=== PATIENT | male | born 1960 ===

== ENCOUNTER 2016-08-10 09:19 | Emergency (ER) | payer MEDICARE, OTHER, MEDICAID ==
[~2016-08-10] VITALS: Ht 179.1 cm; Wt 143.2 kg
[~2016-08-10 09:19] MED LIST: BECL8.7A6 IH; CARV12.52 PO; DOFE0.25 PO; FISH1CAP15 PO; FLUT9.9S NASAL; GARL200T PO; GLUC-123 PO; INSU100I18 SUBQ; INSU100V7 SUBQ; LAN125 PO; LISI10TA PO; METF500T4 PO; MULT1CAP33 PO; NITR0.4T SL; SIMV20TA4 PO; SPIR25TA3 PO; TORS20TA PO; VITA400C64 PO; WARF7.5T4 PO
[2016-08-10 09:21] VITALS: PULSE 53; RESP 16; O2SAT 98
--- NOTE | 2016-08-10 09:34 | ED.REPORT ---
HPI-Abd Pain M 40 and Over Date of Service Aug 10, 2016 ED Provider: David Felix Patient is a 56 year old male on warfarin who presents to the ED complaining of N/V/D onset 0200 this morning. Associated symptoms include cramping abdominal pain that has since resolved and global weakness. His last episode of diarrhea was at 0900 this morning. He denies fever, chills, or any other symptoms. He is concerned that he won't be able to take his heart medications down because of his vomiting. No known sick contacts at home. Nursing Notes Stated Complaint: VOMITTING,DIARRHEA Chief Complaint: Male Abdominal Pain Nursing Notes Reviewed: Yes Allergies: Coded Allergies: NSAIDS (Non-Steroidal Anti-Inflamma (Verified Allergy, Unknown, Oral ulcers, 10/05/15) PER MD PT HAS TAKEN ASA FOR A LONG TIME WITHOUT ANY ISSUES. Not taking ASA presently Scheduled Beclomethasone Dipropionate (Qvar) 8.7 Gm Aer.w.adap 2 PUFFS IH DAILY Carvedilol (Carvedilol) 12.5 Mg Tablet 12.5 MG PO BID Digoxin (Lanoxin) 0.125 Mg Tablet 0.125 MG PO DAILY@12 Dofetilide (Tikosyn) 250 Mcg Capsule 250 MCG PO BID Fish Oil/Dha/Epa (Fish Oil 1,200 mg Fish Oil) 1 Each Capsule 1 EACH PO DAILY Fluticasone Propionate (Flonase Allergy Relief) 50 Mcg/Actuation [place].susp 2 SPRAY NASAL HS Garlic (Garlic) 200 Mg Tablet 200 MG PO DAILY Insulin Glargine (Lantus U100 Insulin Vial) 100 Unit/Ml Vial 100 UNIT SUBQ QPM Lisinopril (Lisinopril) 10 Mg Tablet 10 MG PO DAILY Metformin (Metformin) 500 Mg Tablet 500 MG PO BID Multivitamin (Multivitamins) 1 Each Capsule 1 EACH PO DAILY Simvastatin (Simvastatin) 20 Mg Tablet 20 MG PO HS Spironolactone (Spironolactone) 25 Mg Tablet 12.5 MG PO DAILY Torsemide (Demadex) 20 Mg Tablet 20 MG PO DAILY Vitamin E Mixed (Vitamin E) 400 Unit Capsule 400 UNIT PO DAILY Warfarin Sodium (Warfarin Sodium) 7.5 Mg Tablet 7.5 MG PO Mon,Tue,Thur,Fri,Sat Warfarin Sodium (Warfarin Sodium) 7.5 Mg Tablet 3.75 MG PO Wed,Sun Scheduled PRN Insulin Lispro (HumaLOG U100 Insulin Pen) 100 Unit/1 Ml Insuln.pen 0-25 UNIT SUBQ ACHS PRN PRN Hyperglycemia Blood Sugar Lispro Correction <151 0 units 151-175 1 unit 176-200 2 units 201-225 3 units 226-250 4 units 251-275 5 units 276-300 6 units 301-325 7 units 326-350 8 units 351-375 9 units 376-400 10 units >400 12 units Check blood sugars before meals and at bedtime. Use correction factor only before meals. Nitroglycerin SL (Nitrostat) 0.4 Mg Tab.subl 0.4 MG SL Q5MIN PRN PRN Chest Pain Ondansetron ODT (Zofran ODT) 4 Mg Tablet 4 MG PO Q4H PRN PRN For Nausea Miscellaneous Medications Gluc/Gabino-MSM#2/C/D3/Scott/Born (Oxjllupouw-Jtyaitooene-CQE Tab) 1 Each Tablet 1 EACH PO General Time Seen by MD: 09:33 Chief Complaint Other (Vomiting ) Hx Obtained From: Patient Arrived By: Walk-in Sudden in Onset?: Yes Onset Occurred: 5 - 8 hours ago Past Medical History Past Medical History Hypertension Diabetes mellitus type II Nonischemic dilated cardiomyopathy Chronic systolic congestive heart failure Atrial fibrillation Cardiac catheterization April 2013: Normal coronaries angiographically, severely reduced left ventricular systolic function with an estimated ejection fraction of 30%, left ventricular end-diastolic pressures 9 mmHg. COPD GERD Past Surgical History Vasectomy Right wrist repair Bowel resection Cardiac ablation Appendectomy Pacemaker placement Mitral valve clip Family History Grandfather: CAD, [place] Sister: HTN Brother: IGLESIA Smoking History Former Smoker Social History Alcohol Use: "Social" Drug Use: THC Other Social History: Good social support, Local resident Ambulatory Status Independent Review of Systems Constitutional: Reports: Weakness - generalized, Denies: Chills, Fever GI: Reports: Abdominal pain, Diarrhea, Nausea, Vomiting Complete sys rev & neg: except as marked. Physical Exam Initial Vital Signs Vital Signs (First) Date Time Temp Pulse Resp B/P Pulse Ox O2 Delivery O2 Flow Rate FiO2 08/10/16 09:21 35.8 53 16 98 Room Air 08/10/16 09:38 114/45 Initial VS: Reviewed Head / Eyes: Atraumatic, Normocephalic Skin: Warm, Dry Neurologic: Alert, Oriented, Nonfocal Psychiatric: Mood/affect normal, Behavior normal, Normal thought content General/Constitutional: Awake, Alert Distress / Hydration: Positive: Distress mild Respiratory / Chest: Breath sounds NL, Breath sounds = bilat, No respiratory distress Cardiovascular: Heart rate NL, Regular rhythm Abdomen: Soft, No guarding Tenderness/Guarding/Rebound: Positive: Tender diffuse Back: Inspection NL Interpretation & Diagnostics Lab Results Interpretation Result Diagram: 08/10/16 0950 08/10/16 1211 Test 08/10/16 09:50 08/10/16 12:11 White Blood Count 9.4th/mm3 (3.8-10.1) Red Blood Count 6.43mil/mm3 (4.40-5.80) Hemoglobin 18.4g/dL (13.8-17.2) Hematocrit 52.3% (41.0-50.0) Mean Corpuscular Volume 81.3fL (81-100) Mean Corpuscular Hemoglobin 28.6pg (27.0-35.0) Mean Corpuscular Hemoglobin Concent 35.2% (32.0-37.0) Red Cell Distribution Width 14.5% (12.3-15.4) Platelet Count 207bil/L (150-400) Neutrophils (%) (Auto) 83.3% (40-74) Lymphocytes (%) (Auto) 9.0% (14-46) Monocytes (%) (Auto) 6.6% (4-12) Eosinophils (%) (Auto) 0.4% (0-5) Basophils (%) (Auto) 0.2% (0-3) Total Bilirubin 0.9mg/dL (0.0-1.2) Aspartate Amino Transf (AST/SGOT) 32U/L (0-50) Alanine Aminotransferase (ALT/SGPT) 34U/L (0-44) Alkaline Phosphatase 59U/L (25-150) Total Protein 7.5g/dL (6.4-8.4) Albumin 4.2g/dL (3.4-5.0) Lipase 30U/L (13-60) Sodium Level 134mEq/L (134-144) Potassium Level 5.7mEq/L (3.5-5.2) Chloride Level 96mEq/L (97-108) Carbon Dioxide Level 23mmol/L (18-29) Blood Urea Nitrogen 24mg/dL (6-24) Creatinine 1.10mg/dL (0.76-1.27) Estimat Glomerular Filtration Rate 74mL/min (>59) Glucose Level 415mg/dL (60-99) Calcium Level 8.4mg/dL (8.5-10.1) Re-Eval/Medical Decision Time of Eval: 11:41 )( Re-Eval Abdomen: Soft Patient Status: Condition improved Re-Evaluation/Progress Note: Rechecked patient. His nausea and vomiting have resolved and he was able to keep his medication down. His only complaint is being cold. Gave patient warm blankets. Time of Eval: 12:51 Patient Status: Condition improved Re-Evaluation/Progress Note: Rechecked patient. Discussed plan for discharge. Patient understands and agrees with plan. All questions addressed at this time. Counseled Regarding: Diagnosis, Lab results, Need for follow-up, When/why to return to ED Discharge & Departure Primary Impression: Acute gastroenteritis Additional Impressions: Hyperkalemia Acute kidney injury Dehydration, moderate Disposition: Home Vital Signs - All Vital Signs Date Time Temp Pulse Resp B/P Pulse Ox O2 Delivery O2 Flow Rate FiO2 08/10/16 09:38 114/45 08/10/16 09:21 35.8 53 16 98 Room Air )( All Prior VS Reviewed: Yes Condition: Improved Patient Instructions: Gastroenteritis (ED) Additional Instructions: Your blood work showed evidence of significant dehydration upon arrival which has improved with IV hydration. I am glad you are feeling somewhat better. I suspect that the cause for your vomiting and diarrhea is a viral illness you contracted through oral contact. I recommend fastidious handwashing. I also recommend ondansetron as needed for nausea and loperamide ([id number]) as needed for diarrhea. Keep yourself well-hydrated with sips of clear liquid frequently. Follow-up Friday if your symptoms are not significantly improved, sooner if worse. Referrals: Ansley Alvarez MD (PCP) Scribe Attestation Portions of this note were transcribed by David Eng. I, Dr. Felix personally performed the history, physical exam and medical decision-making; I reviewed and confirmed the accuracy of the information in the transcribed note. Signed by: David Eng 08/10/16, 8048 copies to: Ansley Alvarez MD, Kirk H MD Aug 10, 2016 09:34 DAVID ENG Aug 10, 2016 11:01
[2016-08-10 09:38] VITALS: BP 114/45
[2016-08-10] MEDS ORDERED: 0.9% Sodium Chloride 1,000 ML IV ONE ×2 (09:52→10:55)
[2016-08-10] MEDS ORDERED: Pantoprazole 4 mg/mL 10 mL Inj IVPUSH ONE (09:55)
[2016-08-10] MEDS: Ondansetron 2 mg/mL 2 mL Inj IVPUSH PRN ×2 (10:01→10:58)
[2016-08-10 10:22] LABS: BASOPHILS % (AUTO) 0.2 % (0-3); EOSINOPHILS % (AUTO) 0.4 % (0-5); MONOCYTES % (AUTO) 6.6 % (4-12); Mean Corpuscular Hemoglobin 28.6 pg (27.0-35.0); Mean Corpuscular Volume 81.3 fL (81-100); NEUTROPHILS % (AUTO) 83.3 % (40-74); Platelet Count 207 bil/L (150-400)
[2016-08-10] MEDS ORDERED: ONDA4TAB9 PO (12:59)
[2016-08-10 13:07] VITALS: BP 127/68; PULSE 98; RESP 18; O2SAT 96
== END 2016-08-10 13:09 | disposition home or self-care (01) ==
LOC: SED 10:08
DX: K52.9 Noninfective gastroenteritis and colitis, unspecified (principal); N17.9 Acute kidney failure, unspecified; E87.5 Hyperkalemia; E86.0 Dehydration; I11.0 Hypertensive heart disease with heart failure; E11.59 Type 2 diabetes mellitus with other circulatory complications; I50.9 Heart failure, unspecified; I48.91 Unspecified atrial fibrillation; I25.5 Ischemic cardiomyopathy; J44.9 Chronic obstructive pulmonary disease, unspecified; K21.9 Gastro-esophageal reflux disease without esophagitis; Z95.5 Presence of coronary angioplasty implant and graft; Z95.2 Presence of prosthetic heart valve; Z79.4 Long term (current) use of insulin; Z79.84 Long term (current) use of oral hypoglycemic drugs; Z79.01 Long term (current) use of anticoagulants; Z87.891 Personal history of nicotine dependence; Z88.8 Allergy status to other drugs, medicaments and biological substances
CPT/HCPCS: 36415; 80048; 80053; 83690; 85025; 96361; 96374; 96375; 96376; 99285; J2405; J7030

== ENCOUNTER → 2017-02-07 | Day surgery (SDC) | payer MEDICARE, MEDICAID ==
[2017-02-07] VITALS (7 sets, daily range): BP systolic 99–123; BP diastolic 57–76; PULSE 61–68; RESP 16–22; O2SAT 93–98
[~2017-02-07] VITALS: Ht 180.3 cm; Wt 145.4 kg
[~2017-02-07] MED LIST changes: +AMIO200T PO; -DOFE0.25 PO; +HUMULIN SUBCUTA079; +HYDROcodone-APAP 5-325 mg Tablet PO PRN; -INSU100I18 SUBQ; -INSU100V7 SUBQ; +Ketamine 10 mg/mL 20 mL Inj ONE; -LAN125 PO; +Lactated Ringer's 1,000 ML IV SCH; +Ondansetron 2 mg/mL 2 mL Inj IVPUSH PRN; +Propofol 10,000 mCg/mL 20 mL Inj ONE; -TORS20TA PO; +WARF4TAB6 PO
[2017-02-07 13:23] LABS: BASOPHILS % (AUTO) 0.3 % (0-3); EOSINOPHILS % (AUTO) 1.4 % (0-5); MONOCYTES % (AUTO) 9.7 % (4-12); Mean Corpuscular Hemoglobin 28.6 pg (27.0-35.0); NEUTROPHILS % (AUTO) 54.7 % (40-74); Platelet Count 157 bil/L (150-400)
--- NOTE | 2017-02-07 13:32 | NUR ---
Admit VINCENT Admitted to [facility] about 1245. VSS. Denies pain. Tele Afib. IV started and labs sent. INR 2.5. Procedure and recovery reviewed and verbalizes understanding.
[2017-02-07 13:46] LABS: INR 2.13 ratio
--- NOTE | 2017-02-07 14:39 | NUR ---
Procedure/Recovery Care assumed by Stephanie AMADOR for procedure. Reported shocked x3 at 200J and then achieved SR in 60's. Needed some respiratory support between 2nd and 3rd shocks. Resumed care about 1430. Pt. arousable with stable VS. Continue to monitor per orders.
--- NOTE | 2017-02-07 15:51 | NUR ---
Discharge Pt. awake and back to baseline about 1500. Dr. Sneed in and talked to him. Taking po well. Discharge instructions given, see sheets, verbalizes understanding. IV discontinued intact. Discharged ambulatory with all belongings in no distress at 1545. Wants to wait for ride in cafeteria.
--- NOTE | 2017-02-07 16:09 | PCM.PROC ---
Procedure Note Date of Service: Feb 07, 2017 Pre Procedure Diagnosis: Atrial fibrillation Post Procedure Diagnosis: Normal sinus rhythm Procedure: Electrical cardioversion Provider and Customer Engagement Manager: Michelle Puga M.D. Indication for Procedure: Atrial fibrillation Procedural Analgesia: See anesthesiologist note Procedure Details: A timeout was performing the correct patient procedure were verified. Patient was placed on continuous cardiac monitoring and continuous pulse oximetry. Supplemental oxygen was administered via nasal cannula. Defibrillator pads were placed in the anterior and posterior fashion. The pads were connected to a biphasic defibrillator which was placed in sync mode. After appropriate level of sedation was achieved, synchronize cardioversion was performed at 200 joules with not successful conversion to sinus rhythm. Another attempt was made at 200 J in synchronized fashion. This was also unsuccessful. The patient had acute onset of hypoxia for 1-2 minutes. Patient was given appropriate oxygen supplementation and O2 sats return nicely. Patient was given another cardioversion at 200 J which was successful. Post Procedure Plan: Follow-up in 6 weeks with a repeat EKG. No changes with medications. Amos Sneed MD Feb 07, 2017 16:09
== END | disposition home or self-care (01) ==
LOC: SPI 12:25
PROVIDERS: ATTEND Internal Medicine Cardiovascular Disease
DX: I48.1 Persistent atrial fibrillation (principal); I50.22 Chronic systolic (congestive) heart failure; I34.0 Nonrheumatic mitral (valve) insufficiency; I42.9 Cardiomyopathy, unspecified; E11.9 Type 2 diabetes mellitus without complications; I10 Essential (primary) hypertension; E66.01 Morbid (severe) obesity due to excess calories; Z68.42 Body mass index [BMI] 45.0-49.9, adult; Z79.4 Long term (current) use of insulin; Z79.01 Long term (current) use of anticoagulants; Z98.890 Other specified postprocedural states; Z95.810 Presence of automatic (implantable) cardiac defibrillator; Z79.899 Other long term (current) drug therapy
CPT/HCPCS: 36415; 80048; 85025; 85610; 92960; 93005; J2250; J2704